=== PATIENT | female | born 1960 | race Caucasian/White ===

== ENCOUNTER → 2018-08-17 07:46 | Outpatient (CLI) | payer OTHER, SELFPAY ==
--- NOTE | 2018-08-17 07:51 | BI_ITS ---
MAMMOGRAPHY - BILATERAL SCREENING REASON FOR EXAM: Female, 58 years old. Routine annual screening examination. PERTINENT HISTORY: RT US BX JUL 2017, BILAT MOLES AND SKIN TAGS MARKED TECHNIQUE: Digital bilateral breast sebastián (3D mammographic acquisition) in the CC and MLO projections. 2-D mediolateral oblique (MLO) and craniocaudad (CC) views of both breasts were obtained. CAD: Full Field Digital Mammography with Computer Added Detection was performed. COMPARISON: [id number], 06/02/2017, 04/30/2017 and 04/02/2016 FINDINGS: Breast Composition: The breasts are heterogeneously dense, which may obscure small masses. There are no dominant masses or suspicious calcifications. No other significant abnormalities are identified. BI/SCREENING MAMM (CAD), BILAT IMPRESSION: Stable bilateral screening mammogram. Yearly follow-up mammogram recommended. (A) ASSESSMENT CATEGORY: BIRADS Category 2: Benign. A letter regarding these results will be sent to the patient by the facility within 30 days. Approximately 10% of breast cancers are not detected by mammography. A normal mammogram should not delay biopsy of a clinically suspicious abnormality. [id number] Electronically Signed: Lowell Joshi MD at 11:16 EDT Tel , Service support ,
== END ==
PROVIDERS: Family Provider Family Medicine; PCP Family Medicine; Referring Provider Surgery; Visit Provider Surgery
DX: R92.8 Other abnormal and inconclusive findings on diagnostic imaging of breast (principal); Z12.31 Encounter for screening mammogram for malignant neoplasm of breast
CPT/HCPCS: 77063; 77067

== ENCOUNTER → 2019-08-18 | Outpatient (CLI) | payer OTHER, SELFPAY ==
[2019-01-24 09:13] VITALS: BMI 37.3
--- NOTE | 2019-08-18 11:09 | BI_ITS ---
MAMMOGRAPHY - BILATERAL SCREENING REASON FOR EXAM: Female, 59 years old. Routine annual screening examination. PERTINENT HISTORY: Non-contributory. History of the right ultrasound-guided breast biopsies. TECHNIQUE: Digital bilateral breast colten (3D mammographic acquisition) in the CC and MLO projections. 2-D mediolateral oblique (MLO) and craniocaudad (CC) views of both breasts were obtained. CAD: Full Field Digital Mammography with Computer Added Detection was performed. COMPARISON: Comparison is made with prior examination dated August 17, 2018. FINDINGS: Breast Composition: There are scattered areas of fibroglandular density. There is a 9.6 mm x 11.1 mm well-defined nodule in the upper outer quadrant of the left breast. Correlation with ultrasound is recommended. Stable benign-appearing bilateral axillary lymph nodes. No other significant abnormalities are identified. BI/SCREEN MAMM (CAD) W/COLTEN BILAT IMPRESSION: 9.6 mm x 11.1 mm well-defined nodule in the upper outer left breast as described. Correlation with ultrasound is recommended. ASSESSMENT CATEGORY: BIRADS Category 0: Incomplete. Need additional imaging evaluation. A letter regarding these results will be sent to the patient by the facility within 30 days. Approximately 10% of breast cancers are not detected by mammography. A normal mammogram should not delay biopsy of a clinically suspicious abnormality. [id number] Electronically Signed: Kranthi Causey, at 14:00 EDT , Service support ,
== END | disposition home or self-care (01) ==
LOC: OPBI 10:55
PROVIDERS: Family Provider Family Medicine; PCP Family Medicine; Referring Provider Surgery; Visit Provider Surgery
DX: Z12.31 Encounter for screening mammogram for malignant neoplasm of breast (principal)
CPT/HCPCS: 77063; 77067

== ENCOUNTER → 2019-08-23 | Outpatient (CLI) | payer OTHER, SELFPAY ==
[2019-01-24 09:13] VITALS: BMI 37.3
--- NOTE | 2019-08-23 09:28 | US_ITS ---
STUDY: ULTRASOUND BREAST - LEFT REASON FOR EXAM: Female, 59 years old. TECHNIQUE: Axial and longitudinal images of the LEFT breast were performed with a high resolution ultrasound transducer. COMPARISON: Previous mammogram obtained on 08/18/2019 FINDINGS: LEFT Breast: There is a lesion in the superior lateral quadrant. The lesion measures 0.8 x 0.5 cm in size. Clock notation: 2 o'clock position. Distance from nipple: 4 cm. This ill-defined density appears solid with a smooth back wall and is mildly hypoechoic. Although it could represent an area of focal fibrocystic change, an underlying tumor can't be completely excluded. For this reason a follow-up mammogram and targeted left breast ultrasound in 3 months is recommended for additional evaluation. An ultrasound directed breast biopsy could also be performed. US/Breast Limited Unilateral IMPRESSION: 0.8 x 0.5 cm hypoechoic lesion is seen within the left breast at the 2:00 position of uncertain etiology. A focal area of fibrocystic change versus a fibroadenoma more tumor are also diagnostic possibilities and, due to the difficulties in biopsying this lesion, a follow-up left breast mammogram and targeted left breast ultrasound in 3 months would be helpful for further evaluation. ASSESSMENT CATEGORY: BIRADS Category 3: Probably Benign - Short-Interval Follow-up Suggested. A letter regarding these results will be sent to the patient by the facility within 30 days. Electronically Signed: Levon Padron, at 13:32 EDT Tel , Service support ,
--- NOTE | 2019-08-28 16:21 | BI_ITS ---
MAMMOGRAPHY - UNILATERAL DIAGNOSTIC: LEFT BREAST REASON FOR EXAM: Female, 59 years old. Post ultrasound guided biopsy and clip placement. PERTINENT HISTORY: Abnormal screening mammogram and ultrasound. Recent biopsy. TECHNIQUE: Digital unilateral breast sebastián (3D mammographic acquisition) in the CC and MLO projections. 2-D mediolateral oblique (MLO) and craniocaudad (CC) views of both breasts were obtained. CAD: Full Field Digital Mammography with Computer Added Detection was performed. COMPARISON: Comparison is made with prior mammogram dated August 17, 2018 and August 18, 2019. FINDINGS: Breast Composition: The breasts are heterogeneously dense, which may obscure small masses. There are no dominant masses or suspicious calcifications. A tissue clip marker is seen in the upper lateral aspect of the breast. This corresponds to the nodular density seen on prior mammogram. No other significant abnormalities are identified. BI/DIAG MAMM W/CAD, UNILAT IMPRESSION: Tissue marker clip is seen in the small nodular density in the upper outer aspect of the left breast as described. One year follow-up mammogram recommended. (A) ASSESSMENT CATEGORY: BIRADS Category 2: Benign. A letter regarding these results will be sent to the patient by the facility within 30 days. Approximately 10% of breast cancers are not detected by mammography. A normal mammogram should not delay biopsy of a clinically suspicious abnormality. Electronically Signed: Kranthi Causey, at 9:46 EDT , Service support ,
== END | disposition home or self-care (01) ==
LOC: OPUS 09:26
PROVIDERS: Family Provider Family Medicine; PCP Family Medicine; Referring Provider Surgery; Visit Provider Surgery
DX: R92.2 Inconclusive mammogram (principal)
CPT/HCPCS: 76642

== ENCOUNTER → 2019-08-28 | Outpatient (CLI) | payer OTHER, SELFPAY ==
[2019-08-28 15:10] VITALS: BMI 37.3
--- NOTE | 2019-08-28 15:30 | BRBX_PTH ---
PATIENT: SAIRA GUZMAN LOC: [facility] U#:[id number] AGE/SX: 59/F ROOM: RE08/28/[address]: Dr. Papito Peñaloza MD : 1960 BED: DIS: 08/28/2019 SPEC #: [id number] RECD: 08/29/19 08:17 STATUS: WALTER REAlbert #: [id number] XAVI: 08/28/19 15:[address]: Papito Peñaloza DEPT: SURGICAL PATHOLOGY RECD BY: Giles Arguello ENTERED: 08/29/19 10:02 SP TYPE: BREAST BX OTHR DR: Dr. Ryland Peñaloza III, MD Tissues: Left breast, NOS Procedures: Surgery Specimen Level IV HEADER OPERATION: Ultrasound-guided needle core left breast biopsy PRE-OP DIAGNOSIS: Abnormal left mammogram TISSUE SUBMITTED: Left breast needle core biopsy ISCHEMIC TIME: 1 minute FIXATION TIME: 28 hours MICROSCOPIC DIAGNOSIS Left breast, ultrasound-guided needle core biopsy: Apocrine metaplasia and mild duct ectasia. No evidence of malignancy. AM:tre 08/30/19 MICROSCOPIC DESCRIPTION Slides are reviewed. GROSS DESCRIPTION Received in fixative is one container labeled with the patient's name and designated left breast biopsy. The specimen consists of two elongated fragments of diamond-yellow fibroadipose tissue that in aggregate measure 0.4 x 0.2 x 0.1 cm. The entire specimen is submitted in one cassette. / TRIPP:tre 08/29/19 TC:5 CPT: 45014
== END | disposition home or self-care (01) ==
PROVIDERS: Family Provider Family Medicine; PCP Family Medicine; Referring Provider Surgery; Visit Provider Surgery
DX: R92.8 Other abnormal and inconclusive findings on diagnostic imaging of breast (principal)
CPT/HCPCS: 77065; 88305

== ENCOUNTER → 2020-08-19 10:55 | Outpatient (CLI) | payer OTHER, SELFPAY ==
[2020-03-20 09:46] VITALS: BMI 37.3
--- NOTE | 2020-08-19 10:56 | BI_ITS ---
MAMMOGRAPHY - BILATERAL SCREENING REASON FOR EXAM: Female, 60 years old. Routine annual screening examination. PERTINENT HISTORY: LT U/S GUIDED BX 08-28-19 W/2D POT MAMM RT U/S GUIDED BX JUL 2017, BILAT MOLES AND SKIN TAGS MARKED LT U/S DONE 08-23-19=PB 3 MO F/U MAMM AND U/S TECHNIQUE: Digital bilateral breast colten (3D mammographic acquisition) in the CC and MLO projections. 2-D mediolateral oblique (MLO) and craniocaudad (CC) views of both breasts were obtained. CAD: Full Field Digital Mammography with Computer Added Detection was performed. COMPARISON: 08/28/2019 and 08/17/2018 FINDINGS: Breast Composition: The breasts are heterogeneously dense, which may obscure small masses. There are no dominant masses or suspicious calcifications. No other significant abnormalities are identified. BI/SCREEN MAMM (CAD) W/COLTEN BILAT IMPRESSION: Stable bilateral screening mammogram. Yearly follow-up mammogram recommended. (A) ASSESSMENT CATEGORY: BIRADS Category 2: Benign. A letter regarding these results will be sent to the patient by the facility within 30 days. Approximately 10% of breast cancers are not detected by mammography. A normal mammogram should not delay biopsy of a clinically suspicious abnormality. [id number] Electronically Signed: Lowell Joshi, at 15:49 EDT Tel , Service support ,
== END ==
PROVIDERS: PCP Family Medicine; Referring Provider Surgery; Visit Provider Surgery
DX: Z12.31 Encounter for screening mammogram for malignant neoplasm of breast (principal)
CPT/HCPCS: 77063; 77067

== ENCOUNTER → 2021-08-20 07:12 | Outpatient (CLI) | payer OTHER, SELFPAY ==
[2021-03-24 08:43] VITALS: BMI 35.9
--- NOTE | 2021-08-20 07:03 | BI_ITS ---
MAMMOGRAPHY - BILATERAL SCREENING 3-D TOMOSYNTHESIS REASON FOR EXAM: Female, 61 years old. screening for breast cancer PERTINENT HISTORY: No significant family history. TECHNIQUE: 2-D mammograms and 3-D Tomosynthesis of the breast (s) were performed. CAD was performed. COMPARISON: 08/19/2020 FINDINGS: The breast composition is composed of scattered fibroglandular density. Scattered benign calcifications are seen. No dominant mass in the right breast. 1 cm oval obscured mass in the central left breast at mid depth and focal compression views are recommended for further evaluation. No suspicious calcifications.. No architectural distortion is identified. There is no skin thickening or retraction. BI/SCRN MAMM (CAD)W/COLTEN BILAT IMPRESSION: 1 cm oval obscured mass in the central left breast and focal compression views recommended for further evaluation. ASSESSMENT CATEGORY: BIRADS Category 0: Incomplete. Need additional imaging evaluation as above. A letter regarding these results will be sent to the patient by the facility within 30 days. FOLLOW UP RECOMMENDATION: Additional imaging recommended as above. (E) Approximately 10% of breast cancers are not detected by mammography. A normal mammogram should not delay biopsy of a clinically suspicious abnormality. Electronically Signed: Benji Mcneal MD at 12:52 EDT Tel , Service support ,
== END ==
PROVIDERS: Referring Provider Surgery; Visit Provider Surgery
DX: Z12.31 Encounter for screening mammogram for malignant neoplasm of breast (principal)
CPT/HCPCS: 77063; 77067

== ENCOUNTER → 2021-08-27 14:25 | Outpatient (CLI) | payer OTHER, SELFPAY ==
--- NOTE | 2021-08-27 14:28 | US_ITS ---
STUDY: ULTRASOUND BREAST - LEFT REASON FOR EXAM: Female, 61 years old. Abnormal screening mammogram. TECHNIQUE: Axial and longitudinal images of the LEFT breast were performed with a high resolution ultrasound transducer. # OF IMAGES: 26 COMPARISON: Comparison is made with prior mammogram done earlier today as well as prior ultrasound of the left breast dated 08/23/2000 FINDINGS: LEFT Breast: The periareolar area was examined. Several small cysts are seen. The largest measures 4 mm x 4 mm x 3 mm. US/Breast Limited Unilateral IMPRESSION: Small cysts. Routine mammographic follow-up is recommended. ASSESSMENT CATEGORY: BIRADS Category 2: Benign. A letter regarding these results will be sent to the patient by the facility within 30 days. Electronically Signed: Kranthi Causey MD at 15:17 EDT , Service support ,
--- NOTE | 2021-08-27 14:28 | BI_ITS ---
MAMMOGRAPHY - UNILATERAL DIAGNOSTIC: LEFT BREAST REASON FOR EXAM: Female, 61 years old. Abnormal screening mammogram. PERTINENT HISTORY: Non-contributory. TECHNIQUE: Compression spot views of the left breast in mediolateral oblique and craniocaudad projections were obtained. CAD: Full Field Digital Mammography with Computer Added Detection was performed. COMPARISON: Comparison is made with prior study dated 08/20/2021. FINDINGS: Breast Composition: There are scattered areas of fibroglandular density. There is a persistent slightly irregular nodule measuring 5.4 mm in the central portion of the left breast. Correlation with ultrasound is recommended. A tissue clip marker is once again seen in the upper lateral aspect of the left breast. No other significant abnormalities are identified. BI/DIAG MAMM W/CAD, UNILAT IMPRESSION: 5.4 mm slightly irregular nodule in the central portion of left breast as described. Correlation with ultrasound is recommended. ASSESSMENT CATEGORY: BIRADS Category 0: Incomplete. Need additional imaging evaluation. A letter regarding these results will be sent to the patient by the facility within 30 days. Approximately 10% of breast cancers are not detected by mammography. A normal mammogram should not delay biopsy of a clinically suspicious abnormality. Electronically Signed: Kranthi Causey MD at 15:11 EDT , Service support ,
== END ==
PROVIDERS: Referring Provider Surgery; Visit Provider Surgery
DX: N63.20 Unspecified lump in the left breast, unspecified quadrant (principal)
CPT/HCPCS: 76642; 77065

== ENCOUNTER 2022-02-25 09:02 | Outpatient (CLI) | payer OTHER, SELFPAY ==
--- NOTE | 2022-02-25 09:00 | BI_ITS ---
MAMMOGRAPHY - UNILATERAL DIAGNOSTIC: LEFT BREAST REASON FOR EXAM: Female, 61 years old. Six-month follow-up for left breast cysts. PERTINENT HISTORY: Non-contributory. TECHNIQUE: Digital unilateral breast sebastián (3D mammographic acquisition) in the CC and MLO projections. 2-D mediolateral oblique (MLO) and craniocaudad (CC) views of both breasts were obtained. CAD: Full Field Digital Mammography with Computer Added Detection was performed. COMPARISON: Comparison is made with prior study dated 08/27/2021 and 08/20/2021. FINDINGS: Breast Composition: There are scattered areas of fibroglandular density. There are no dominant masses or suspicious calcifications. The previously seen 5.4 mm nodule in the central portion of the left breast has decreased in size. A tissue clip marker is once again seen in the deep upper lateral aspect of the left breast. No other significant abnormalities are identified. BI/DIAG MAMM W/CAD, UNILAT IMPRESSION: Stable unilateral diagnostic mammogram. One year follow-up mammogram recommended. (A) ASSESSMENT CATEGORY: BIRADS Category 2: Benign. A letter regarding these results will be sent to the patient by the facility within 30 days. Approximately 10% of breast cancers are not detected by mammography. A normal mammogram should not delay biopsy of a clinically suspicious abnormality. Electronically Signed: Kranthi Causey MD at 10:15 EDT ,
--- NOTE | 2022-02-25 09:34 | US_ITS ---
STUDY: ULTRASOUND BREAST - LEFT REASON FOR EXAM: Female, 61 years old. Abnormal screening mammogram. 6 month follow-up for cysts. TECHNIQUE: Axial and longitudinal images of the LEFT breast were performed with a high resolution ultrasound transducer. # OF IMAGES: 29 COMPARISON: Comparison is made with prior sonogram of the breasts dated 08/27/2021. FINDINGS: LEFT Breast: The periareolar region was examined with ultrasound. There is a 2 mm x 3 mm x 3 mm cyst at the 7 o''clock position of the breast at 3 cm from the nipple. Adjacent to this, there is a 3 mm x 3 mm x 3 mm cyst. These are essentially unchanged. US/Breast Limited Unilateral IMPRESSION: 2 small stable cyst seen in the retroareolar region of the breast ASSESSMENT CATEGORY: BIRADS Category 2: Benign. A letter regarding these results will be sent to the patient by the facility within 30 days. Electronically Signed: Kranthi Causey MD at 10:43 EDT ,
== END 2022-02-25 23:59 | disposition home or self-care (01) ==
LOC: OPBI 09:04
PROVIDERS: Referring Provider Surgery; Visit Provider Surgery
DX: R92.8 Other abnormal and inconclusive findings on diagnostic imaging of breast (principal)
CPT/HCPCS: 76642; 77061; 77065; G0279

== ENCOUNTER → 2022-09-08 | Outpatient (CLI) | payer OTHER, SELFPAY ==
--- NOTE | 2022-09-08 08:01 | BI_ITS ---
MAMMOGRAPHY - BILATERAL SCREENING REASON FOR EXAM: Female, 62 years old. Routine annual screening examination. PERTINENT HISTORY: Non-contributory. History of prior left breast biopsy. TECHNIQUE: Digital bilateral breast colten (3D mammographic acquisition) in the CC and MLO projections. 2-D mediolateral oblique (MLO) and craniocaudad (CC) views of both breasts were obtained. CAD: Full Field Digital Mammography with Computer Added Detection was performed. COMPARISON: Comparison is made with prior study dated 08/20/2021 and 08/27/2021. FINDINGS: Breast Composition: There are scattered areas of fibroglandular density. There are no dominant masses or suspicious calcifications. A tissue clip marker is seen in the upper lateral aspect of the left breast. Stable 5.4 mm well-defined nodule in the central portion of the left breast. Stable fat-containing bilateral axillary lymph nodes. No other significant abnormalities are identified. There has been no significant change since the prior study. BI/SCRN MAMM (CAD)W/COLTEN BILAT IMPRESSION: Stable bilateral screening mammogram. Yearly follow-up mammogram recommended. (A) ASSESSMENT CATEGORY: BIRADS Category 2: Benign. A letter regarding these results will be sent to the patient by the facility within 30 days. Approximately 10% of breast cancers are not detected by mammography. A normal mammogram should not delay biopsy of a clinically suspicious abnormality. [id number] Electronically Signed: Kranthi Causey MD at 10:05 EDT ,
== END | disposition home or self-care (01) ==
LOC: OPBI 08:00
PROVIDERS: Referring Provider Surgery; Visit Provider Surgery
DX: Z12.31 Encounter for screening mammogram for malignant neoplasm of breast (principal)
CPT/HCPCS: 77063; 77067

== ENCOUNTER → 2023-09-10 | Outpatient (CLI) | payer OTHER, SELFPAY ==
--- NOTE | 2023-09-10 10:03 | BI_ITS ---
MAMMOGRAPHY - BILATERAL SCREENING REASON FOR EXAM: Female, 63 years old. Routine annual screening examination. PERTINENT HISTORY: Non-contributory. Prior bilateral breast biopsies. TECHNIQUE: Digital bilateral breast colten (3D mammographic acquisition) in the CC and MLO projections. 2-D mediolateral oblique (MLO) and craniocaudad (CC) views of both breasts were obtained. CAD: Full Field Digital Mammography with Computer Added Detection was performed. COMPARISON: Comparison is made with prior study dated September 08, 2022 and February 25, 2022. FINDINGS: Breast Composition: There are scattered areas of fibroglandular density. There are no dominant masses or suspicious calcifications. Additional marker is seen in the upper lateral aspect of the left breast. The nodular density is almost completely resolved. Stable fat-containing bilateral axillary lymph nodes. No other significant abnormalities are identified. There has been no significant change since the prior study. BI/SCRN MAMM (CAD)W/COLTEN BILAT IMPRESSION: Stable bilateral screening mammogram. Yearly follow-up mammogram recommended. (A) ASSESSMENT CATEGORY: BIRADS Category 2: Benign. A letter regarding these results will be sent to the patient by the facility within 30 days. Approximately 10% of breast cancers are not detected by mammography. A normal mammogram should not delay biopsy of a clinically suspicious abnormality. [id number] Electronically Signed: Kranthi Causey MD at 12:15 EDT ,
== END | disposition home or self-care (01) ==
LOC: OPBI 10:03
PROVIDERS: PCP Family Medicine; Referring Provider Nurse Practitioner Women's Health; Visit Provider Nurse Practitioner Women's Health
DX: Z12.31 Encounter for screening mammogram for malignant neoplasm of breast (principal)
CPT/HCPCS: 77063; 77067

== ENCOUNTER → 2024-09-11 | Outpatient (CLI) | payer OTHER, SELFPAY ==
--- NOTE | 2024-09-11 08:27 | BI_ITS ---
MAMMOGRAPHY - BILATERAL SCREENING REASON FOR EXAM: Female, 64 years old. Routine annual screening examination. PERTINENT HISTORY: Non-contributory. History of prior right ultrasound-guided breast biopsy. TECHNIQUE: Digital bilateral breast colten (3D mammographic acquisition) in the CC and MLO projections. 2-D mediolateral oblique (MLO) and craniocaudad (CC) views of both breasts were obtained. CAD: Full Field Digital Mammography with Computer Added Detection was performed. COMPARISON: Comparison is made with prior study September 10, 2023 and September 08, 2022. FINDINGS: Breast Composition: There are scattered areas of fibroglandular density. There are no dominant masses or suspicious calcifications. Stable bilateral benign-appearing axillary lymph nodes. A tissue clip marker is once again seen in the upper lateral aspect of the left breast. No other significant abnormalities are identified. There has been no significant change since the prior study. BI/SCRN MAMM (CAD)W/COLTEN BILAT IMPRESSION: Stable bilateral screening mammogram. Yearly follow-up mammogram recommended. (A) ASSESSMENT CATEGORY: BIRADS Category 2: Benign. A letter regarding these results will be sent to the patient by the facility within 30 days. Approximately 10% of breast cancers are not detected by mammography. A normal mammogram should not delay biopsy of a clinically suspicious abnormality. [id number] Electronically Signed: Kranthi Causey MD at 9:22 EDT ,
== END | disposition home or self-care (01) ==
LOC: OPBI 08:24
PROVIDERS: PCP Family Medicine; Referring Provider Nurse Practitioner Women's Health; Visit Provider Nurse Practitioner Women's Health
DX: Z12.31 Encounter for screening mammogram for malignant neoplasm of breast (principal)
CPT/HCPCS: 77063; 77067

== ENCOUNTER → 2025-09-17 | Outpatient (CLI) | payer MEDICARE, BC, SELFPAY ==
--- NOTE | 2025-09-17 12:15 | BI_ITS ---
EXAM: BI/SCRN MAMM (CAD)W/COLTEN BILAT
== END | disposition home or self-care (01) ==
LOC: OPBI 12:02
PROVIDERS: PCP Family Medicine; Referring Provider Nurse Practitioner Women's Health; Visit Provider Nurse Practitioner Women's Health
DX: Z12.31 Encounter for screening mammogram for malignant neoplasm of breast (principal)
CPT/HCPCS: 77063; 77067